=== PATIENT | female | born 1965 | race African-American/Black ===

== ENCOUNTER 2023-03-30 21:33 | Emergency (ER) | payer OTHER, BC, SELFPAY ==
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
[2023-03-30 21:36] VITALS: BP 141/93; PULSE 75; RESP 14; TEMP 36.9; O2SAT 99; BMI 30.7
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
[2023-03-30] MEDS: Acetaminophen 325 MG TABLET 650 MG PO (22:30)
[2023-03-30] MEDS: Cyclobenzaprine HCl 10 MG TABLET PO (22:31)
[2023-03-30 22:48] VITALS: BP 166/97; PULSE 64; RESP 16; TEMP 36.6; O2SAT 97
== END 2023-03-30 23:30 | disposition home or self-care (01) ==
PROVIDERS: Emergency Provider Emergency Medicine; PCP Nurse Practitioner Family
DX: S13.4XXA Sprain of ligaments of cervical spine, initial encounter (principal); R51.9 Headache, unspecified; M54.2 Cervicalgia; V43.52XA Car driver injured in collision with other type car in traffic accident, initial encounter; Y93.9 Activity, unspecified; Y92.410 Unspecified street and highway as the place of occurrence of the external cause; Y99.9 Unspecified external cause status
CPT/HCPCS: 70450; 72125; 99283; 99284